=== PATIENT | female | born 1985 | race Two or more races ===

== ENCOUNTER 2017-07-20 07:48 | Outpatient (CLI) | payer OTHER ==
--- NOTE | 2017-07-20 16:12 | MRI Report ---
EXAM: MRI CERVICAL SPINE WITHOUT CONTRAST EXAM DATE: 07/20/2017 08:44 AM. CLINICAL HISTORY: RADICULOPATHY, CERVICALGIA REGION. Chronic lower cervical pain. Bilateral arm pain, numbness, and tingling. Symptoms have been present 8-10 years. COMPARISONS: None. TECHNIQUE: Multiplanar, multisequence T1-weighted and fluid-sensitive sequences of the cervical spine without contrast. Other: None. FINDINGS: Neurologic Structures: The visualized posterior fossa structures are unremarkable. No signal abnormal ity in the visualized spinal cord. The spinal canal is capacious. Alignment: No scoliosis or spondylolisthesis. Bone Marrow: No gross fractures or bone lesions. No marrow edema. Interspace Levels/Facets: C1-C2: Unremarkable on sagittal series. C2-C3: Unremarkable. C3-C4: Unremarkable. C4-C5: Unremarkable. C5-C6: Unremarkable. Minimal right dorsal lateral disk bulge. No stenosis. C6-C7: Unremarkable. C7-T1: Unremarkable. Musculature: Normal. No edema or fatty atrophy. Other: The paravertebral and prevertebral soft tissues are normal. IMPRESSION: 1. Unremarkable MRI of the cervical spine. The cervical spinal cord is normal in appearance. The spin al canal is capacious. 2. No significant spondylosis. No stenosis. [facility] Referring Provider Line: [phone] SITE ID: [id number]
== END 2017-07-20 07:49 | disposition home or self-care (01) ==
LOC: DI 07:48
PROVIDERS: ATTEND Family Medicine
DX: M54.12 Radiculopathy, cervical region (principal); M54.2 Cervicalgia
CPT/HCPCS: 72141

== ENCOUNTER 2018-06-14 22:18 | Emergency (ER) | payer OTHER ==
[2018-06-14 22:42] LABS: BILIRUBIN,URINE NEGATIVE (NEGATIVE); GLUCOSE, URINE (UA) NEGATIVE (NEGATIVE); KETONES,URINE (UA) NEGATIVE (NEGATIVE); LEUKOCYTE ESTERASE, URINE NEGATIVE (NEGATIVE); NITRITE,URINE NEGATIVE (NEGATIVE); OCCULT BLOOD,URINE LARGE (NEGATIVE); PH,URINE 5.5 PH (5.0-7.5); PROTEIN,URINE TRACE mg/dL (NEGATIVE); UROBILINOGEN,URINE 1 (NORMAL) E.U./dL (NORMAL)
[2018-06-14 22:44] LABS: CLARITY,URINE HAZY (CLEAR)
[2018-06-14 22:51] LABS: BACTERIA,URINE Rare /HPF (None Seen); SQUAMOUS EPITHELIAL CELL,UR FEW Squamous (<= Few)
[2018-06-14 22:52] LABS: CRYSTALS,URINE >50 Calcium Oxalate /LPF
--- NOTE | 2018-06-14 23:08 | ED Physician Documentation ---
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 She had some bright red blood she has now slowed down to spotting only. She has had a complicated prior with a placenta previa and was sick most of the time with the with hyperemesis gravidarum. She reports that she has been trying to stay hydrated. She has not seen the OB she has not had an ultrasound with this . Review of Systems Constitutional: denies: Fever, Chills, Myalgias Eyes: denies: Decreased vision Ears: denies: Ear pain Nose: reports: Congestion. denies: Rhinorrhea / runny nose Throat: denies: Sore throat Cardiac: denies: Chest pain / pressure, Palpitations Respiratory: denies: Dyspnea, Cough GI: reports: Nausea, Vomiting. denies: Abdominal Pain : reports: Vaginal bleeding, Other (pelvic cramping). denies: Dysuria, Frequency Skin: denies: Rash Musculoskeletal: denies: Neck pain, Back pain, Extremity pain PD PAST MEDICAL HISTORY - Past Medical History Past Medical History: No - Past Surgical History Past Surgical History: No - Allergies Allergies/Adverse Reactions: Allergies Allergy/AdvReac Type Severity Reaction Status Date / Time No Known Drug Allergies Allergy Verified 06/14/18 22:25 - Social History Does the pt smoke?: No Smoking Status: Never smoker Does the pt drink ETOH?: No Does the pt have substance abuse?: No - Immunizations Immunizations are current?: No Immunizations: TDAP current <10years - POLST Patient has POLST: No PD ED PE NORMAL - Vitals Vital signs reviewed: Yes (hypertensive mild ) - General General: Alert and oriented X 3, No acute distress, Well developed/nourished - HEENT HEENT: Atraumatic, PERRL, EOMI - Cardiac Cardiac: RRR, No murmur - Respiratory Respiratory: No respiratory distress, Clear bilaterally - Abdomen Abdomen: Soft, Non tender - Back Back: No CVA TTP, No spinal TTP - Derm Derm: Normal color, Warm and dry, No rash - Extremities Extremities: No deformity, No edema - Neuro Neuro: Alert and oriented X 3, last putter away 2-12 intact, No motor deficit, No sensory deficit, Normal speech Eye Opening: Spontaneous Motor: Obeys Commands Verbal: Oriented GCS Score: 15 - Psych Psych: Normal mood, Normal affect Results - Vitals Vitals: Vital Signs - 24 hr 06/14/18 22:22 Temperature 36.5 C Heart Rate 98 Respiratory 24 Rate Blood Pressure 117/82 H O2 Saturation 99 Oxygen O2 Source Room air - Labs Labs: Laboratory Tests 06/14/18 22:35 Urine Color YELLOW Urine Clarity HAZY Urine pH 5.5 Ur Specific [place] >=1.030 H Urine Protein TRACE Urine Glucose (UA) NEGATIVE Urine Ketones NEGATIVE Urine Occult Blood LARGE H Urine Nitrite NEGATIVE Urine Bilirubin NEGATIVE Urine Urobilinogen 1 (NORMAL) Ur Leukocyte Esterase NEGATIVE Urine RBC 11-25 H Urine WBC 0-3 Ur Squamous Epith Cells FEW Squamous Urine Crystals >50 Calcium Oxalate Urine Bacteria Rare Ur Microscopic Review INDICATED Urine Culture Comments NOT INDICATED Procedures - Bedside sono Bedside sono by EMP: With use of bedside ultrasound a viable fetus is imaged in the uterus moving freely about heart rate approximately 156 and crown-rump length dates the fetus at 11 weeks 5 days. - IVC sono (time) 2250 Bedside IVC sono: IVC measures (cm) (1.7), Euvolemia PD MEDICAL DECISION MAKING - ED course Complexity details: considered differential, d/w patient, d/w family ED course: 33-year-old 2 para 1 female appears to be 11+ weeks she does have an intrauterine fetus that appears viable and she is having some bleeding and cramping. I have reassured the patient the statistics are in her favor for carrying the baby to term and she will follow-up with OB at [facility] on Saturday. Blood type B+ The patient has had a lot of vomiting with this and despite this she has been able to stay hydrated. On interrogation of the inferior vena cava she does not appear dehydrated. Departure - Departure Disposition: Home, Self Care Clinical Impression: Threatened affecting intrauterine Condition: Stable Instructions: ED Miscarriage Poss Follow-Up: KATHRYN VANN DO [Primary Care Provider] - Forms: Activity restrictions
[2018-06-14 23:20] VITALS: BP 111/69
== END 2018-06-14 23:24 | disposition home or self-care (01) ==
LOC: ED 22:18
DX: O20.0 Threatened abortion (principal); O21.9 Vomiting of pregnancy, unspecified; Z3A.11 11 weeks gestation of pregnancy
CPT/HCPCS: 81001; 81003; 87086; 99283

== ENCOUNTER 2018-06-19 09:27 | Emergency (ER) | payer OTHER ==
[2018-06-19] MEDS ORDERED: SODIUM CHLORIDE 0.9% 1,000 ML IV ONE ×2 (09:52→11:44)
[2018-06-19] MEDS ORDERED: ONDANSETRON 4 MG/2 ML VIAL IVP STA ×2 (09:52→13:20)
--- NOTE | 2018-06-19 09:58 | ED Physician Documentation ---
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 She states that in her first she had hyperemesis gravidarum and required admission to the hospital. She is 13 weeks 5 days and she has gone into the clinic for follow-up after her visit to the emergency department last week. She has used zofran and vitamin B6 with unisom without relief. Review of Systems Constitutional: denies: Fever, Chills Eyes: denies: Decreased vision Ears: denies: Ear pain Nose: denies: Congestion Throat: denies: Sore throat Cardiac: denies: Chest pain / pressure, Palpitations Respiratory: denies: Dyspnea, Cough GI: reports: Abdominal Pain, Nausea, Vomiting. denies: Constipation, Diarrhea : denies: Dysuria, Frequency PD PAST MEDICAL HISTORY - Past Surgical History Past Surgical History: No - Present Medications Home Medications: Ambulatory Orders Medication Instructions Recorded Confirmed Ondansetron Odt [Zofran] 4 mg TL Q6H PRN #10 tablet 06/19/18 - Allergies Allergies/Adverse Reactions: Allergies Allergy/AdvReac Type Severity Reaction Status Date / Time No Known Drug Allergies Allergy Verified 06/19/18 09:39 - Social History Does the pt smoke?: No Smoking Status: Never smoker Does the pt drink ETOH?: No Does the pt have substance abuse?: No - Immunizations Immunizations are current?: No Immunizations: TDAP current <10years - POLST Patient has POLST: No PD ED PE NORMAL - Vitals Vital signs reviewed: Yes (normal ) - General General: Alert and oriented X 3, No acute distress, Well developed/nourished - HEENT HEENT: Atraumatic, PERRL, EOMI - Neck Neck: Supple, no meningeal sign, No bony TTP - Cardiac Cardiac: RRR, No murmur - Respiratory Respiratory: No respiratory distress, Clear bilaterally - Abdomen Abdomen: Soft, Non tender - Back Back: No CVA TTP, No spinal TTP - Derm Derm: Normal color, Warm and dry, No rash - Extremities Extremities: No deformity, No edema - Neuro Neuro: Alert and oriented X 3, 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, No motor deficit, No sensory deficit, Normal speech Eye Opening: Spontaneous Motor: Obeys Commands Verbal: Oriented GCS Score: 15 - Psych Psych: Normal mood, Normal affect Results - Vitals Vitals: Vital Signs - 24 hr 06/19/18 06/19/18 06/19/18 09:32 10:25 12:53 Temperature 36.5 C Heart Rate 82 82 Respiratory 18 18 16 Rate Blood Pressure 109/74 97/76 O2 Saturation 100 100 Oxygen O2 Source Room air - Labs Labs: Laboratory Tests 06/19/18 06/19/18 06/19/18 09:52 09:52 11:07 WBC 7.0 RBC 4.62 Hgb 13.5 Hct 38.6 MCV 83.6 MCH 29.2 MCHC 34.9 RDW 12.6 Plt Count 212 MPV 7.5 L Neut # (Auto) 5.4 Lymph # (Auto) 1.3 L [place] # (Auto) 0.3 Eos # (Auto) 0.0 Baso # (Auto) 0.0 Absolute Nucleated RBC 0.00 Nucleated RBC % 0.0 Sodium 133 L Potassium 3.6 Chloride 100 L Carbon Dioxide 22 Anion Gap 11.0 BUN 11 Creatinine 0.5 Estimated GFR (MDRD) 144 Glucose 79 Calcium 8.8 Total Bilirubin 1.5 H AST 38 ALT 52 Alkaline Phosphatase 34 L Total Protein 7.2 Albumin 3.9 Globulin 3.3 Albumin/Globulin Ratio 1.2 Lipase 29 Urine Color DARK YELLOW Urine Clarity CLEAR Urine pH 6.0 Ur Specific [place] >=1.030 H Urine Protein 30 H Urine Glucose (UA) NEGATIVE Urine Ketones >=80 H Urine Occult Blood NEGATIVE Urine Nitrite NEGATIVE Urine Bilirubin NEGATIVE Urine Urobilinogen 1 (NORMAL) Ur Leukocyte Esterase NEGATIVE Urine RBC 0-5 Urine WBC 0-3 Ur Squamous Epith Cells RARE Squamous Urine Bacteria Rare Urine Mucus Marked Strands Ur Microscopic Review INDICATED Urine Culture Comments NOT INDICATED Procedures - IVC sono (time) 0950 Bedside IVC sono: IVC measures (cm) (0.88), IVC collapsed c insp (cm) (complete), Dehydration (est 2 liter deficit) PD MEDICAL DECISION MAKING - ED course Complexity details: reviewed old records, reviewed results, re-evaluated patient, considered differential, d/w patient, d/w family ED course: 33-year-old female 13 weeks with hyperemesis gravidarum is dehydrated e stimated at 2 L deficit. IV is started she is administered saline and Zofran. Departure - Departure Disposition: 01 Home, Self Care Clinical Impression: Hyperemesis gravidarum, Dehydration Condition: Stable Instructions: ED Preg Morning Sickness, ED Dehydration Follow-Up: KATHRYN VANN DO [Primary Care Provider] - Prescriptions: Ondansetron Odt [Zofran] 4 mg TL Q6H PRN #10 tablet PRN Reason: Nausea / Vomiting
[2018-06-19 10:23] LABS: BASOPHILS % (AUTO) 0.7 %; EOSINOPHILS % (AUTO) 0.7 %; HGB - HEMOGLOBIN 13.5 g/dL (12.0-16.0); LYMPHOCYTES # (AUTO) 1.3 10^3/uL (1.5-3.5); LYMPHOCYTES % (AUTO) 18.4 %; MEAN CORPUSCULAR HEMOGLOBIN 29.2 pg (27.0-31.0); MEAN CORPUSCULAR HGB CONC 34.9 g/dL (32.0-36.0); MEAN CORPUSCULAR VOLUME 83.6 fL (81.0-99.0); MEAN PLATELET VOLUME 7.5 fL (7.9-10.8); MONOCYTES # (AUTO) 0.3 10^3/uL (0.0-1.0); NEUTROPHILS # (AUTO) 5.4 10^3/uL (1.5-6.6); NEUTROPHILS % (AUTO) 76.2 %; PLT - PLATELET COUNT 212 10^3/uL (130-450); RED BLOOD COUNT 4.62 10^6/uL (4.20-5.40); RED CELL DISTRIBUTION WIDTH 12.6 % (12.0-15.0)
[2018-06-19 10:45] LABS: ALBUMIN 3.9 g/dL (3.2-5.5); ALBUMIN/GLOBULIN RATIO 1.2 (1.0-2.2); BILIRUBIN,TOTAL 1.5 mg/dL (0.2-1.0); CALCIUM 8.8 mg/dL (8.5-10.3); CREATININE 0.5 mg/dL (0.4-1.0); TOTAL PROTEIN 7.2 g/dL (6.7-8.2)
[2018-06-19 11:19] LABS: GLUCOSE, URINE (UA) NEGATIVE (NEGATIVE); KETONES,URINE (UA) >=80 mg/dL (NEGATIVE); LEUKOCYTE ESTERASE, URINE NEGATIVE (NEGATIVE); NITRITE,URINE NEGATIVE (NEGATIVE); OCCULT BLOOD,URINE NEGATIVE (NEGATIVE); PROTEIN,URINE 30 mg/dL (NEGATIVE); UROBILINOGEN,URINE 1 (NORMAL) E.U./dL (NORMAL)
[2018-06-19 11:28] LABS: BILIRUBIN,URINE NEGATIVE (NEGATIVE); CLARITY,URINE CLEAR (CLEAR); ICTOTEST,URINE NEGATIVE
[2018-06-19 11:40] LABS: BACTERIA,URINE Rare /HPF (None Seen); MUCUS,URINE Marked Strands; RBC,URINE 0-5 /HPF (0-5); SQUAMOUS EPITHELIAL CELL,UR RARE Squamous (<= Few)
[2018-06-19 12:54] VITALS: BP 97/76
== END 2018-06-19 13:44 | disposition home or self-care (01) ==
LOC: ED 09:27
DX: O21.1 Hyperemesis gravidarum with metabolic disturbance (principal); Z3A.13 13 weeks gestation of pregnancy
CPT/HCPCS: 36415; 80053; 81001; 81003; 83690; 85025; 87086; 96361; 96374; 96376; 99283

== ENCOUNTER 2018-08-20 06:27 | Emergency (ER) | payer OTHER ==
[2018-08-20 06:34] VITALS: BP 121/83
== END 2018-08-20 06:50 | disposition home or self-care (01) ==
LOC: ED 06:27
DX: K52.9 Noninfective gastroenteritis and colitis, unspecified (principal); Z33.1 Pregnant state, incidental
CPT/HCPCS: 36415; 80053; 85025; 96361; 96374; 96375; 99213; J7120; 99281

== ENCOUNTER 2018-08-20 06:47 | Outpatient (CLI) | payer OTHER ==
[2018-08-20 07:03] VITALS: BP 110/73
[2018-08-20] MEDS ORDERED: LACTATED RINGERS 1,000 ML IV ONE ×2 (07:59→08:29)
[2018-08-20] MEDS ORDERED: ONDANSETRON 4 MG/2 ML VIAL IVP PRN (08:29)
[2018-08-20] MEDS ORDERED: LACTATED RINGERS 500 ML IV ONE (08:29)
[2018-08-20] MEDS ORDERED: SODIUM CHLORIDE FLUSH 0.9% 10 ML SYRINGE ONE ×2 (08:40→09:25)
[2018-08-20] MEDS ORDERED: ONDANSETRON 4 MG/2 ML VIAL ONE (08:47)
[2018-08-20 08:54] LABS: BASOPHILS % (AUTO) 0.2 %; EOSINOPHILS % (AUTO) 0.2 %; HGB - HEMOGLOBIN 12.3 g/dL (12.0-16.0); LYMPHOCYTES # (AUTO) 0.9 10^3/uL (1.5-3.5); LYMPHOCYTES % (AUTO) 6.9 %; MEAN CORPUSCULAR HEMOGLOBIN 29.9 pg (27.0-31.0); MEAN CORPUSCULAR HGB CONC 33.8 g/dL (32.0-36.0); MEAN CORPUSCULAR VOLUME 88.4 fL (81.0-99.0); MEAN PLATELET VOLUME 7.8 fL (7.9-10.8); MONOCYTES # (AUTO) 0.4 10^3/uL (0.0-1.0); MONOCYTES % (AUTO) 3.1 %; NEUTROPHILS % (AUTO) 89.6 %; PLT - PLATELET COUNT 195 10^3/uL (130-450); RED BLOOD COUNT 4.13 10^6/uL (4.20-5.40); RED CELL DISTRIBUTION WIDTH 13.6 % (12.0-15.0); WHITE BLOOD COUNT 13.4 x10^3/uL (4.8-10.8)
[2018-08-20] MEDS ORDERED: FAMOTIDINE 20 MG/2 ML VIAL IVP ONE (09:00)
[2018-08-20] MEDS ORDERED: D5.45NS W/20 MEQ KCL 1,000 ML IV SCH (09:00)
[2018-08-20] MEDS ORDERED: DIPHENOX/ATROPINE 2.5/0.025 MG TABLET PO ONE (09:00)
[2018-08-20 09:08] LABS: ALBUMIN 3.3 g/dL (3.2-5.5); ALBUMIN/GLOBULIN RATIO 1.1 (1.0-2.2); BILIRUBIN,TOTAL 0.6 mg/dL (0.2-1.0); CALCIUM 8.6 mg/dL (8.5-10.3); CREATININE 0.5 mg/dL (0.4-1.0); TOTAL PROTEIN 6.4 g/dL (6.7-8.2)
--- NOTE | 2018-08-20 09:32 | PROVIDER PROGRESS NOTE ---
- HPI Chief Complaint: Pain, non-labor Current : Vital Signs Temperature 98.1 F 08/20/18 06:57 Heart Rate 97 08/20/18 06:57 Respiratory Rate 18 08/20/18 06:57 Blood Pressure 110/73 08/20/18 06:57 O2 Saturation 113 H 08/20/18 06:57 Temperature 98.1 F 08/20/18 06:57 Heart Rate 97 08/20/18 06:57 Respiratory Rate 18 08/20/18 06:57 Blood Pressure 110/73 08/20/18 06:57 O2 Saturation 113 H 08/20/18 06:57 - Exam Alert, NAD Abd soft, nt/nd Fundus firm, NT, 2cm above U - Procedures OB Procedure Performed: NST Diagnosis/Indication for NST: Other (Abdominal pain) Date: 08/20/18 Findings: Normal baseline with moderate LTV. [place] neg - Plan Plan: S: ate [place] food last night. Woke up this am and had urge to vomit, emesis was strong, had a loose stool, had upper abdominal cramping. Has had hyperemesis this and this didn't feel like that. Cramping felt GI in nature--gassy. Last delivery was at term. No VB, no LOF. AVSS Alert, NAD Abd soft, nt/nd Fundus firm, NT, 2cm above U Triage course: improved after IVF 1L bolus and zofran. CMP normal. Abd nont tequila. No UC. A/P: gastroenteritis, incidental at 22w. Doing well. D/c home. Hydrate as much as possible, zofran PRN, f/u at regularly scheduled OB visit at [place], PTL precautions.
== END 2018-08-20 10:00 | disposition home or self-care (01) ==
LOC: WFO 06:47 → FBP 06:49 → WFO 10:00
PROVIDERS: ATTEND Obstetrics & Gynecology
DX: K52.9 Noninfective gastroenteritis and colitis, unspecified (principal); Z33.1 Pregnant state, incidental
CPT/HCPCS: 80053; 85025; 99213; J7120; 36415; 96361; 96374; 96375